=== PATIENT | male | born 1985 | race Caucasian/White ===

== ENCOUNTER 2016-05-12 09:26 | Emergency (ER) | payer OTHER ==
[~2016-05-12] VITALS: Ht 172.7 cm; Wt 89.0 kg
[~2016-05-12 09:26] MED LIST: CEPH-443 PO; POLY10DR19 BOTH EYES
[2016-05-12 09:31] VITALS: Ht 172.7 cm; Wt 89.0 kg
[2016-05-12] MEDS ORDERED: IBUPROFEN 800 MG TAB PO ONE (11:00)
--- NOTE | 2016-05-12 11:08 | ERD ---
ER Documentation Chief Complaint Date/Time DATE: 05/12/16 TIME: 11:01 Chief Complaint left shoulder pain/dislocation? HPI 30-year-old male presented to ED with possible left shoulder dislocation. He states that he was put down close this morning, he outstretched his left arm when he had a popping sensation of his left shoulder. He is not having pain and able to move his left arm. He had frequent dislocations of his left shoulder in the past. This feels very much like previous dislocation. His last dislocation was about 5 years ago. He tried to reduce the dislocation at home by laying face down swing his left arm, but was unsuccessful. Patient is right-hand dominant. Denies trauma. ROS All systems reviewed and are negative except as per history of present illness. Medications Home Meds Active Scripts Ibuprofen* (Motrin*) 600 Mg Tab, 600 MG PO Q6H, #30 TAB Prov:CRISTÓBAL SHEETS BUSINESS INFORMATION ANALYST 05/12/16 Polymyxin B Sulfate-TMP* (Polymyxin B-TMP Eye Drops*) 10 Ml Drops, 1 DROP BOTH EYES QID for 7 Days, EA Prov:GALDINO SAHU PA-C 08/16/15 Cephalexin* (Keflex*) 500 Mg Capsule, 500 MG PO QID for 7 Days, CAP Prov:GALDINO SAHU PA-C 08/16/15 Allergies Allergies: Uncoded Allergies: TB MED (Allergy, Unknown, unknown reaction during childhood, 08/16/15) cannot confirm exact med PMhx/Soc Medical and Surgical Hx: pt denies Medical Hx, pt denies Surgical Hx Hx Alcohol Use: No Hx Substance Use: No Hx Tobacco Use: No Smoking Status: Never smoker Physical Exam Vitals Vital Signs Date Time Temp Pulse Resp B/P Pulse Ox O2 Delivery O2 Flow Rate FiO2 05/12/16 09:31 98.1 69 20 137/97 99 Physical Exam General impression: Well-developed, well-nourished. Alert, oriented, in no acute distress Head: Normocephalic, atraumatic. Respiration: Normal respiratory effort. Lungs clear to auscultate bilaterally. No wheezes, rales or rhonchi. Cardiovascular: Regular rate and rhythm. No murmurs or extra heart sounds. Extremities: Left shoulder sloped down, with a prominence at the posterior lateral aspect. Tenderness at the anterior aspect. Reduce range of motion of the left shoulder. Neurovascularly intact distally. Neuro: Mental status normal, speech normal. COAL GRADER grossly intact. Skin: Normal turgor. No rash or lesions. Psych: Normal mood and affect. Results 24 hrs Current Medications Medications (Trade) Dose Ordered Sig/Fabiola Route PRN Reason Start Time Stop Time Status Last Admin Dose Admin Ibuprofen (Motrin) 800 mg ONCE ONCE PO 05/12/16 11:00 05/12/16 11:01 DC 05/12/16 10:58 Lidocaine (Xylocaine 1% (Mdv) 20 ml) 20 ml ONCE ONCE SC 05/12/16 11:30 05/12/16 11:31 DC PROCEDURE: Left shoulder series CLINICAL INDICATION: post reduction. TECHNIQUE: 2 views. COMPARISON: The same day at 11:00 a.m. FINDINGS: There is reduction of previously noted left shoulder dislocation. There appears to be anatomic alignment. IMPRESSION: 1. Reduction of previously noted left shoulder dislocation. There appears to be anatomic alignment. RPTAT: HGSG .Cleveland Wheat MD, MD Date Time Electronically viewed and signed by .Cleveland Wheat MD, MD on 05/12/2016 12: 23 .G/ CC: CRISTÓBAL SHEETS NP PROCEDURE: CR right shoulder CLINICAL INDICATION: Shoulder pain TECHNIQUE: 2 views performed COMPARISON: No comparison available. FINDINGS: There is an anterior dislocation . This is associated with sub coracoid displacement of the humeral head. No Hill-Sachs or Bankart deformity is identified. There is otherwise normal mineralization, architecture and alignment.No fracture or osseous lesion is identified.The glenohumeral and acromioclavicular joints are unremarkable. The soft tissues are unremarkable. IMPRESSION: Anterior shoulder dislocation RPTAT: HGDB .Cleveland Reyna MD, Date Time Electronically viewed and signed by .Cleveland Reyna MD, MD on 05/12/2016 11:15 .B/ CC: CRISTÓBAL SHEETS NP PROCEDURE: Left shoulder series CLINICAL INDICATION: post reduction. TECHNIQUE: 2 views. COMPARISON: The same day at 11:00 a.m. FINDINGS: There is reduction of previously noted left shoulder dislocation. There appears to be anatomic alignment. IMPRESSION: 1. Reduction of previously noted left shoulder dislocation. There appears to be anatomic alignment. RPTAT: HGSG .Cleveland Wheat MD, Date Time Electronically viewed and signed by .Cleveland Wheat MD, on 05/12/2016 12: 23 .G/ CC: CRISTÓBAL SHEETS NP Procedures/MDM Well-appearing 30-year-old male presents to ED with left shoulder dislocation. Anterior shoulder dislocation noted on the initial x-ray. Procedure: Shoulder reduction. Written consent obtained from patient for intra-articular lidocaine injection for shoulder reduction. 15 cc of lidocaine injected into the left shoulder joint. Shoulder is reduced with patient in the sitting position, left arm flexed at the elbow while applying extension and external rotation force to the left elbow. Patient is neurovascularly intact after the reduction. Postreduction images showed proper alignment of the left shoulder. No Hill- Sachs deformities noted in either pre-or post reduction imaging. The area of injury was immobilized with a sling. Patient was noted to be comfortable and neurovascularly intact both before and after the immobilization. Patient appears well, stable for discharge and outpatient management. Medical decision making shared with patient and family. Education provided to patient and family. Patient and family expressed understanding of the plan. Medications on discharge: Ibuprofen. Follow-up: Primary care provider in 2-3 days or return to ED if worse. Departure Diagnosis: Primary Impression: Dislocation of shoulder, left, closed Encounter type: initial encounter Qualified Code: S43.005A - Dislocation of shoulder, left, closed, initial encounter Condition: Good CRISTÓBAL SHEETS NP May 12, 2016 11:08
--- NOTE | 2016-05-12 11:15 | RADRPT ---
PROCEDURE: CR right shoulder CLINICAL INDICATION: Shoulder pain TECHNIQUE: 2 views performed COMPARISON: No comparison available. FINDINGS: There is an anterior dislocation . This is associated with sub coracoid displacement of the humeral head. No Hill-Sachs or Bankart deformity is identified. There is otherwise normal mineralization, architecture and alignment.No fracture or osseous lesion i s identified.The glenohumeral and acromioclavicular joints are unremarkable. The soft tissues are un remarkable. IMPRESSION: Anterior shoulder dislocation RPTAT: HGDB .Cleveland Reyna MD, MD Date Time Electronically viewed and signed by .Cleveland Reyna MD, MD on 05/12/2016 11:15 .B/
[2016-05-12] MEDS ORDERED: LIDOCAINE 1% (MDV) 20 ML INJ SC ONE (11:30)
[2016-05-12] MEDS ORDERED: IBUP-1542 PO (12:02)
--- NOTE | 2016-05-12 12:23 | RADRPT ---
PROCEDURE: Left shoulder series CLINICAL INDICATION: post reduction. TECHNIQUE: 2 views. COMPARISON: The same day at 11:00 a.m. FINDINGS: There is reduction of previously noted left shoulder dislocation. There appears to be anatomic alig nment. IMPRESSION: 1. Reduction of previously noted left shoulder dislocation. There appears to be anatomic alignment . RPTAT: HGSG .Cleveland Wheat MD, MD Date Time Electronically viewed and signed by .Cleveland Wheat MD, on 05/12/2016 12:23 .G/
[2016-05-12 12:41] VITALS: BP 132/67; PULSE 78; RESP 20; TEMP 98.1
== END 2016-05-12 12:41 | disposition home or self-care (01) ==
LOC: FTE 09:26
DX: S43.005A Unspecified dislocation of left shoulder joint, initial encounter (principal); X50.9XXA Other and unspecified overexertion or strenuous movements or postures, initial encounter; Y92.9 Unspecified place or not applicable
CPT/HCPCS: 23650; 73030; Z7502; Z7610

== ENCOUNTER 2016-10-05 00:05 | Emergency (ER) | payer SELFPAY ==
[~2016-10-05] VITALS: Ht 177.8 cm; Wt 93.0 kg
[~2016-10-05 00:05] MED LIST changes: +IBUP-1542 PO
[2016-10-05 00:11] VITALS: Ht 177.8 cm; Wt 93.0 kg
[2016-10-05] MEDS ORDERED: KETOROLAC 60 MG INJ IM STA (00:38)
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
--- NOTE | 2016-10-05 01:22 | RADRPT ---
PROCEDURE: XR Chest. CLINICAL INDICATION: Chest wall pain TECHNIQUE: Single frontal view of the chest. COMPARISON: None. FINDINGS: The cardiomediastinal silhouette is within normal limits. The lungs are clear. No signs of pleural f luid or pneumothorax are seen. The osseous structures and soft tissues are unremarkable. IMPRESSION: No evidence for active cardiopulmonary disease. RPTAT: [facility] Physician Darryl Date Time Electronically viewed and signed by Physician Darryl on 10/05/2016 01:22 RS/
[2016-10-05] MEDS ORDERED: IBUP-1542 PO (01:44)
[2016-10-05] MEDS ORDERED: TRAM50TA2 PO (01:44)
== END 2016-10-05 01:50 | disposition home or self-care (01) ==
LOC: FTE 00:05
DX: R07.89 Other chest pain (principal)
CPT/HCPCS: 71010; 93005; 96372; 99284; J1885

== ENCOUNTER 2018-11-06 12:03 | Emergency (ER) | payer BC ==
[~2018-11-06] VITALS: Ht 172.7 cm; Wt 97.3 kg
[~2018-11-06 12:03] MED LIST changes: +D-ME473S2 PO; +DOXY100T34 PO; +TRAM50TA2 PO
[2018-11-06 12:09] VITALS: BP 159/87; PULSE 124; RESP 20; Ht 172.7 cm; Wt 97.3 kg
== END 2018-11-06 13:12 | disposition home or self-care (01) ==
LOC: E/R 12:03
DX: J18.1 Lobar pneumonia, unspecified organism (principal)
CPT/HCPCS: 71045